=== PATIENT | female | born 1985 | race African-American/Black ===

== ENCOUNTER 2021-05-19 11:28 | Outpatient (REF) | payer SELFPAY | END 2021-05-19 11:29 | disposition home or self-care (01) | LOC: HO.SCI 11:28 | PROVIDERS: Visit Provider Family Medicine | DX: Z13.89 Encounter for screening for other disorder (principal) ==

== ENCOUNTER 2021-06-24 16:20 | Outpatient (REF) | payer MEDICAID, SELFPAY ==
--- NOTE | 2021-06-24 | PFT_ITS ---
INDICATION: Wheezing. SPIROMETRY: The FEV1 to FVC 92% with an FEV1 of 2.44 L, which is 109% predicted and FVC of 2.66 L, which is 99% predicted. No significant response to bronchodilators noted. Maximum voluntary ventilation 105% predicted. LUNG VOLUMES: Total lung capacity 85% predicted with an expiratory reserve volume of 38% predicted. DIFFUSION CAPACITY: DLCO 90% predicted. COMPARISONS: None. INTERPRETATION: No obstructive nor restrictive ventilatory defects have been identified. No significant response to bronchodilators noted. Lung volumes are low normal and a decrease in the expiratory reserve volume secondary to an elevated BMI. Diffusion capacity is within normal limits. If asthma is in the differential, methacholine challenge may be helpful in assessing for hyper-reactive airways, otherwise clinical correlation warranted. MD CATHERINE Romeo/MODL / [id number]
== END 2021-06-24 16:21 | disposition home or self-care (01) ==
LOC: HO.RESP 16:20
PROVIDERS: PCP Family Medicine; Visit Provider Family Medicine
DX: R06.2 Wheezing (principal)
CPT/HCPCS: 94060; 94727; 94729

== ENCOUNTER → 2021-09-20 14:23 | Outpatient (BNVA) | payer MEDICAID, SELFPAY | PROVIDERS: PCP Family Medicine; Referring Provider Family Medicine; Visit Provider Internal Medicine | DX: R07.2 Precordial pain (principal); F17.200 Nicotine dependence, unspecified, uncomplicated | CPT/HCPCS: 93005; 99202 ==

== ENCOUNTER → 2021-10-26 08:35 | Outpatient (REF) | payer MEDICAID, SELFPAY ==
--- NOTE | 2021-10-26 08:38 | CA_ITS ---
Acquisition Time: 2021-10-26 10:15:23 Total Exercise Time: 00:07:13 Test Indications: CP Medications: SEE CHART Protocol: JUSTIN Max HR: 160 BPM 86% of Pred: 184 BPM Max BP: 164/062 mmHG Max Work Load: 8.7 METS Exercise stress test with exercise 7 min 13 sec of Justin protocol, without anginal symptoms, with isolated PACs and PVCs, with normotensive response to exercise, without EKG change meeting criteria for ischemia. Test reviewed with Dr Black. Referred By: Casey Black Overread By: TIM ABREU
--- NOTE | 2021-10-26 08:38 | CA_ITS ---
Transthoracic Echocardiogram Patient (Last, First, Middle): Vijay Matos, Gender: Female Date of : 1985 Age: 36 Procedure Date: 10/26/2021 Procedure Type: Transthoracic Echocardiogram Location: OP Height: 162.56 cm Weight: 95.26 kg BSA: 2.00 m2 Heart Rate: bpm BP: 136 / 61 mmHg Flight Tower Dispatcher: KRUNAL Referring MD: Casey Black MD Symptoms: R07.2 - Precordial pain Study Quality: Fair ECG Rhythm: Sinus Conclusions: - The left ventricular systolic function is normal. The visually estimated ejection fraction is between 60-65%. - No obvious valvular pathology seen on this study. Findings Left Ventricle Normal left ventricular cavity size. There is normal left ventricular wall thickness. The left ventricular systolic function is normal. The visually estimated ejection fraction is between 60-65%. There is no evidence of regional wall motion abnormalities. Diastolic function is normal for age. Right Ventricle Normal right ventricular cavity size and systolic function. Atria The left atrium is normal in size. The right atrium is normal in size. Aortic Valve There is a normal trileaflet aortic valve. There is no aortic valve stenosis. There is no aortic valve regurgitation. Mitral Valve The mitral valve appears normal. There is no mitral valve regurgitation. There is no mitral valve stenosis. Pulmonic Valve The pulmonic valve was not well visualized. Tricuspid Valve Normal tricuspid valve structure. There is trace tricuspid valve regurgitation. The pulmonary artery systolic pressure is normal. Great Vessels The aortic annulus, sinuses of valsalva, and asc aorta are normal in size. Venous The inferior vena cava is normal in size and collapses greater than 50% with inspiration. Pericardium/Pleural There is no evidence of pericardial effusion. Prior Study Comparison No prior study available for comparison. Recommendations, Care & Conclusions No obvious valvular pathology seen on this study. Measurements 2D Linear Measurements IVSd: 1.05 0.6-0.9/0.6-1.0 cm LVIDd: 4.58 3.9-5.3/4.2-5.9 cm LVIDd Index: 2.29 2.4-3.2/2.2-3.1 cm/m2 LVIDs: 2.77 2.0-3.6 cm LVPWd: 1.02 0.7-1.1 cm Ao Root: 2.50 2.1-3.5 cm LA Diam: 2.90 2.7-3.8/3.0-4.0 cm LAIDs Index: 1.45 1.5-2.3 cm/m2 LV Mass: 205.93 67-162/88-224 g LV Mass Index: 102.96 43-95/49-115 g/m2 LVOT Diam: 1.90 3.0+(-)1.3 cm 2D Systolic Function EF 4C: 59.60 >55% EF 2C: 61.80 >55% EF BiP: 61.10 >55% Mitral Valve MV Pk E: 0.68 MV PK A: 0.46 MV Decel Time: 209.00 E/A: 1.50 E'Lateral: 12.80 E'Medial: 10.70 E/E' Med: 6.30 E/E' Lat: 5.30 PHT: 61.00 MVA PHT: 3.61 Decel Catron: 3.26 Aortic Valve AoV Pk Sanjay: 1.25 AoV Pk Grad: 6.00 LVOT LVOT Pk Sanjay: 0.92 LVOT Mn Sanjay: 0.64 LVOT VTI: 0.21 LVOT Pk Grad: 3.00 LVOT Mn Grad: 2.00 LVOT Diam: 1.90 LVOT Area: 2.84 Diastolic Function MV Pk E: 0.68 MV Pk A: 0.46 E/A: 1.50 E'Medial: 10.70 E/E' Med: 6.30 E' Laterial: 12.80 E/E' Lat: 5.30 Tricuspid Valve TR Pk Sanjay: 2.33 TR Pk Grad: 22.00 Great Vessels Aorta Ao Root-2D: 2.50 2.0-3.7 cm Ao Asc: 2.80 2.1-3.4 cm Updated in Other Vendor System with Status of Final Casey Black MD electronically signed on 10/27/2021 11:31:14 AM with status of Final
== END ==
LOC: HO.CARD 08:35
PROVIDERS: Visit Provider Internal Medicine
DX: R07.2 Precordial pain (principal)
CPT/HCPCS: 93017; 93306

== ENCOUNTER → 2021-12-01 14:46 | Outpatient (BNVA) | payer MEDICAID, SELFPAY | PROVIDERS: PCP Family Medicine; Referring Provider Family Medicine; Visit Provider Internal Medicine ==